=== PATIENT | female | born 1955 | race Caucasian/White ===

== ENCOUNTER 2017-04-23 16:15 | Emergency (ER) | payer BC ==
[~2017-04-23] VITALS: Ht 157.5 cm; Wt 73.5 kg
[2017-04-23] MEDS ORDERED: NEBI2.5T5 PO (16:33)
[2017-04-23] MEDS ORDERED: LOSA25TA3 PO (16:33)
[2017-04-23] MEDS ORDERED: PANT40TA2 PO (16:33)
[2017-04-23] MEDS ORDERED: ATOR20TA PO (16:33)
[2017-04-23] MEDS ORDERED: ASPI81TA31 PO (16:33)
--- NOTE | 2017-04-23 17:22 | NUR ---
PT IS IN ROOM #2B. DR FOSS EVALUATED THE PT.
[2017-04-23] MEDS ORDERED: ONDANSETRON IV *ER 4 MG/2 ML VIAL IV ONE ×3 (17:30→23:15)
[2017-04-23] MEDS ORDERED: PANTOPRAZOLE SODIUM IV 40 MG in IV DEXTROSE 5% 100 ML IV ONE (17:30)
[2017-04-23] MEDS ORDERED: PANTOPRAZOLE SODIUM 40 MG VIAL ONE ×2 (17:41→20:02)
[2017-04-23] MEDS ORDERED: ONDANSETRON 4 MG/2 ML VIAL ONE ×3 (17:42→23:26)
[2017-04-23] MEDS ORDERED: MORPHINE SULFATE 2 MG/1 ML DISP.SYRIN IV ONE (17:45)
[2017-04-23 17:53] LABS: *BILIRUBIN,URIN NEGATIVE (NEGATIVE); *BLOOD, URINE NEGATIVE (NEGATIVE); *CLARITY,URINE CLEAR (CLEAR); *COLOR,URINE YELLOW (YELLOW); *KETONES,URINE NEGATIVE (NEGATIVE); *PROTEIN,URINE 2+ (NEGATIVE); *UROBILINOGEN,URINE 0.2 E.U./dl (NORMAL); LEUKOCYTE ESTERASE ,URINE TRACE (NEGATIVE); NITRITE, URINE NEGATIVE (NEGATIVE); UGLUCOSE NEGATIVE (NEGATIVE)
[2017-04-23 18:03] LABS: CREATININE 0.9 mg/dL (0.6-1.3); POTASSIUM 4.2 mmol/L (3.5-5.1)
[2017-04-23] MEDS ORDERED: MORPHINE SULFATE 2 MG/1 ML DISP.SYRIN ONE (18:07)
[2017-04-23 18:08] LABS: BACTERIA,URINE FEW /HPF (NONE SEEN); RBC,URINE 0-3 /HPF (0-3); SQUAMOUS EPITHELIAL CELL,UR MODERATE /HPF (NONE SEEN)
[2017-04-23 18:10] LABS: BILIRUBIN,TOTAL 0.3 mg/dL (0.2-1.0); TOTAL PROTEIN, SERUM 7.2 g/dL (6.4-8.2)
[2017-04-23 18:15] LABS: BASOPHILS % (AUTO) 0.6 % (0.0-2.0); EOSINOPHILS # (AUTO) 0.2 K/uL (0.0-0.7); HEMATOCRIT 37.5 % (37-47); HEMOGLOBIN 12.1 G/DL (12.0-16.0); LYMPHOCYTES % (AUTO) 25.7 % (20.5-51.5); MEAN CORPUSCULAR HEMOGLOBIN 27.5 UUG (27.0-31.0); MEAN CORPUSCULAR HGB CONC 32 g/dL (32.0-37.0); MEAN CORPUSCULAR VOLUME 84.8 FL (81.0-99.0); MONOCYTES # (AUTO) 0.8 K/UL (0.1-1.30); MONOCYTES % (AUTO) 9.9 % (0.0-11.0); NEUTROPHILS # (AUTO) 4.7 K/UL (1.8-8.9); NEUTROPHILS % (AUTO) 61.8 % (38.5-71.5); PLATELET COUNT (AUTO) 284 K/UL (150-450); RED BLOOD CELL COUNT(AUTO) 4.42 MIL/UL (4.2-5.4); WHITE BLOOD COUNT (AUTO) 7.7 K/UL (4.0-11.2)
--- NOTE | 2017-04-23 19:22 | NUR ---
REPORT GIVEN TO THE HEEL SEAT TRIMMER RN.
--- NOTE | 2017-04-23 19:25 | NUR ---
REPORT RECEIVED FROM DAYSMTFT NURSE, PT FOUND RESTING IN BED WITH DAUGHTERS AT BEDSIDE.. PT IS ALERT, ORIENTED X 3, NO RESP DISTRESS NOTED OR REPORTED UPON ASSESSMENT, WILL CONTINUE TO MONTIOR FOR SAFETY, PAIN AND COMFORT...
[2017-04-23] MEDS ORDERED: IV NORMAL SALINE 1000 ML BAG IV ONE (19:45)
[2017-04-23] MEDS ORDERED: IOHEXOL 300MG/ML 100 ML INFUS..BTL ONE (20:18)
[2017-04-23] MEDS ORDERED: IV NORMAL SALINE 250 ML IV ONE (20:18)
[2017-04-23] MEDS ORDERED: NORMAL SALINE FLUSH 10 ML DISP.SYRIN ONE (20:18)
[2017-04-23] MEDS ORDERED: MORPHINE SULFATE 4 MG/1 ML DISP.SYRIN IV ONE (23:15)
[2017-04-23] MEDS ORDERED: MORPHINE SULFATE 4 MG/1 ML DISP.SYRIN ONE (23:26)
--- NOTE | 2017-04-23 23:41 | NUR ---
IV removed and william cath on right upper chest. Catheter intact and site benign. Pressure and 4x4 gauze applied to site. No bleeding noted.
[2017-04-23 23:43] VITALS: BP 139/76
--- NOTE | 2017-04-24 00:23 | NUR ---
Patient discharged to home in stable conditon. Written and verbal after care instructions given. Patient verbalizes understanding of instructions. pt walked out of ER unassisted with belongings and family at side...
== END 2017-04-24 00:35 | disposition home or self-care (01) ==
LOC: ER 17:25 → TELE 21:14 → UNDOADMIN 21:14 → ER 04-24 00:35
DX: K62.89 Other specified diseases of anus and rectum (principal); C18.9 Malignant neoplasm of colon, unspecified; C78.5 Secondary malignant neoplasm of large intestine and rectum; C78.7 Secondary malignant neoplasm of liver and intrahepatic bile duct
CPT/HCPCS: 36415; 70030-TC; 71260; 72193; 74160; 83690; 85025; 93005; A4663; C9113; J2270; J2405; J3490; J7030; J7050; J7060; Q9967

== ENCOUNTER 2017-06-13 13:47 | Inpatient (IN) | payer SELFPAY ==
[~2017-06-13] VITALS: Ht 157.5 cm; Wt 68.0 kg
[~2017-06-13 13:47] MED LIST: ASPI81TA31 PO; ATOR20TA PO; LOSA25TA3 PO; NEBI2.5T5 PO; PANT40TA2 PO
--- NOTE | 2017-06-13 14:21 | NUR ---
PT IS IN ROOM #2B. DR DURON EVALUATED THE PT.
[2017-06-13] MEDS ORDERED: IV NORMAL SALINE 1000 ML BAG IV ONE (14:30)
[2017-06-13 15:31] LABS: BASOPHILS # (AUTO) 0.1 K/uL (0.0-8.0); BASOPHILS % (AUTO) 2.2 % (0.0-2.0); EOSINOPHILS # (AUTO) 0.1 K/uL (0.0-0.7); EOSINOPHILS % (AUTO) 2.7 % (0.0-7.0); HEMOGLOBIN 11.3 G/DL (12.0-16.0); LYMPHOCYTES # (AUTO) 1.8 K/UL (0.8-4.8); LYMPHOCYTES % (AUTO) 35.9 % (20.5-51.5); MEAN CORPUSCULAR HEMOGLOBIN 26.1 UUG (27.0-31.0); MEAN CORPUSCULAR HGB CONC 31 g/dL (32.0-37.0); MEAN CORPUSCULAR VOLUME 83.4 FL (81.0-99.0); MONOCYTES # (AUTO) 0.4 K/UL (0.1-1.30); MONOCYTES % (AUTO) 8.4 % (0.0-11.0); NEUTROPHILS # (AUTO) 2.6 K/UL (1.8-8.9); NEUTROPHILS % (AUTO) 50.8 % (38.5-71.5); PLATELET COUNT (AUTO) 201 K/UL (150-450); RED BLOOD CELL COUNT(AUTO) 4.32 MIL/UL (4.2-5.4)
[2017-06-13 15:43] LABS: BILIRUBIN,DIRECT 0.1 mg/dL (0.0-0.2); BILIRUBIN,TOTAL 0.3 mg/dL (0.2-1.0); CREATININE 0.8 mg/dL (0.6-1.3); POTASSIUM 3.6 mmol/L (3.5-5.1); TOTAL PROTEIN, SERUM 6.3 g/dL (6.4-8.2)
[2017-06-13] MEDS ORDERED: ONDANSETRON IV *ER 4 MG/2 ML VIAL IV ONE (16:15)
[2017-06-13] MEDS ORDERED: ONDANSETRON 4 MG/2 ML VIAL ONE (16:23)
--- NOTE | 2017-06-13 16:40 | NUR ---
PT WAS TRANSFERED TO ROOM #220. REPORT WAS GIVEN TO SUPERVISOR LEAD BURNING.
[2017-06-13 17:07] VITALS: BP 129/82
--- NOTE | 2017-06-13 17:10 | NUR ---
RECEIVED PATIENT FOR ADMISSION 61 YEARS OLD FEMALE FROM ED WITH DX OF BOWEL OBSTRUCTION AND PULMONARY MASS PLACED INTO BED FIXED AND MADE COMFORTABLE PATIENT IS ALERT AND ORIENTED SPEAKS MOSTLY CITIZEN OF [place] WITH [place] BUT HER DAUGHTER IS AT THE BEDSIDE ASSISTING HER NEEDED.DR ASHLEY PARKS NOTIFIED THAT THE PATIENT IS HERE AND HE STATED WILL SEE PATIENT.MARIA ELENA CATH RIGHT UPPER CHEST INTACT WITH RICHARDS NEEDLE NOT IN DISTRESS AT THIS TIME.
[2017-06-13] MEDS ORDERED: ACETAMINOPHEN 325 MG TABLET PO PRN (17:15)
[2017-06-13] MEDS: CARVEDILOL 3.125 MG TABLET PO SCH (18:00)
[2017-06-13] MEDS: IV NS 1000 ML 1,000 ML IV PRN (18:18)
--- NOTE | 2017-06-13 18:40 | NUR ---
CALL RECEIVED FROM [facility] STATED THAT PATIENT HAS AN ORDER FOR SMALL BOWEL FOLLOW THROUGH AND STATED THAT IT WILL BE DONE TOMORROW PATIENT IS NPO EXCEPT MEDICATIONS.
[2017-06-13 19:51] VITALS: BP 106/47
[2017-06-13] MEDS: Z GUARD REMEDY PASTE 57 GM TUBE TOP PRN (21:07)
[2017-06-13] MEDS: ATORVASTATIN 20 MG TABLET PO SCH (21:07)
[2017-06-13] MEDS: FAMOTIDINE. 20 MG/2 ML VIAL IV SCH (21:07)
[2017-06-13] MEDS: ONDANSETRON 4 MG/2 ML VIAL IV PRN (21:26)
[2017-06-14] VITALS (7 sets, daily range): BP systolic 103–155; BP diastolic 63–75
--- NOTE | 2017-06-14 01:30 | NUR ---
Patient c/o pain in abdominal wall, lower back & BLE. Had 4x episodes of foul odor diarrhea. Paged [facility] windows consultant provider, spoke to Washington Jensen NP. Received orders & carried out.
[2017-06-14] MEDS: Z GUARD REMEDY PASTE 57 GM TUBE TOP PRN (05:07)
[2017-06-14 06:58] LABS: BILIRUBIN,TOTAL 0.2 mg/dL (0.2-1.0); CREATININE 0.8 mg/dL (0.6-1.3); MAGNESIUM 1.8 mg/dL (1.8-2.4); PHOSPHOROUS 3.1 mg/dL (2.5-4.9); POTASSIUM 3.6 mmol/L (3.5-5.1); TOTAL PROTEIN, SERUM 5.8 g/dL (6.4-8.2)
[2017-06-14 07:05] LABS: THYROID STIMULATING HORMONE 3.773 mIU/mL (0.358-3.740)
[2017-06-14 07:10] LABS: BASOPHILS # (AUTO) 0.1 K/uL (0.0-8.0); EOSINOPHILS # (AUTO) 0.2 K/uL (0.0-0.7); EOSINOPHILS % (AUTO) 4.4 % (0.0-7.0); HEMATOCRIT 33.3 % (37-47); HEMOGLOBIN 10.7 G/DL (12.0-16.0); LYMPHOCYTES # (AUTO) 1.4 K/UL (0.8-4.8); LYMPHOCYTES % (AUTO) 40.4 % (20.5-51.5); MEAN CORPUSCULAR HGB CONC 32 g/dL (32.0-37.0); MEAN CORPUSCULAR VOLUME 83.9 FL (81.0-99.0); MONOCYTES # (AUTO) 0.3 K/UL (0.1-1.30); MONOCYTES % (AUTO) 9.7 % (0.0-11.0); NEUTROPHILS # (AUTO) 1.4 K/UL (1.8-8.9); NEUTROPHILS % (AUTO) 43.5 % (38.5-71.5); PLATELET COUNT (AUTO) 182 K/UL (150-450); RED BLOOD CELL COUNT(AUTO) 3.97 MIL/UL (4.2-5.4)
[2017-06-14 07:12] LABS: WHITE BLOOD COUNT (AUTO) 3.4 K/UL (4.0-11.2)
--- NOTE | 2017-06-14 07:30 | NUR ---
Asleep & diarrhea stopped after 5 episodes of liquid stool. No acute resp. distress
--- NOTE | 2017-06-14 07:49 | NUR ---
RECEIVED IN BED AWAKE ALERT AND ORIENTED.DENIES PAIN OR DISCOMFORTS AT THIS TIME.REMAIN ON IVF ORDERED VIA THE MARIA ELENA CATH WITH NO S/S OF INFILTERATION ON SITE.REMAIN NPO EXCEPT MEDS ORDERED PATIENT IS FOR SMALL BOWEL FOLLOW THROUGH THIS MORNING WILL WAIT TO GIVE HER THE ORAL MEDICATIONS.TELEMETRY WITH NO ECTOPY AT THIS TIME.
[2017-06-14] MEDS ORDERED: DIATR MEGLU/DIATRIZOATE SODIUM 120 ML BOTTLE ONE (07:55)
[2017-06-14] MEDS ORDERED: BARIUM SULFATE 340 GM ONE (07:56)
[2017-06-14] MEDS: CARVEDILOL 3.125 MG TABLET PO SCH ×2 (08:00→17:08)
[2017-06-14] MEDS: LOSARTAN POTASSIUM 25 MG TABLET PO SCH ×2 (08:56→11:33)
[2017-06-14] MEDS: ASPIRIN 81 MG TAB.CHEW PO SCH (08:56)
[2017-06-14] MEDS: FAMOTIDINE. 20 MG/2 ML VIAL IV SCH ×2 (08:57→21:37)
--- NOTE | 2017-06-14 08:57 | NUR ---
PATIENT IS CURRENTLY HAVING THE SMALL BOWEL FOLLOW THROUGH AND REMAINS NPO FOR THIS PROCEDURE AND THE TECH STATED WILL BE ANOTHER 2 HOURS FOR COMPLETION OF THE TEST.
[2017-06-14] MEDS ORDERED: PANTOPRAZOLE SODIUM 40 MG TABLET.DR PO SCH (09:00)
[2017-06-14] MEDS ORDERED: PANTOPRAZOLE SODIUM 40 MG VIAL IV SCH (09:00)
[2017-06-14] MEDS: ONDANSETRON 4 MG/2 ML VIAL IV PRN ×2 (09:10→17:06)
[2017-06-14] MEDS: IV NS 1000 ML 1,000 ML IV PRN (09:11)
[2017-06-14] MEDS: HYDROCODONE/APAP 5-325MG TABLET PO PRN ×2 (10:48→17:06)
--- NOTE | 2017-06-14 11:33 | NUR ---
BLOOD PRESSURE AT THIS TIME IS 155/74 ADMINISTERED COZAAR UNSCHEDULED IT WAS HELD THIS AM AND WILL OBSERVE.
--- NOTE | 2017-06-14 16:52 | NUR ---
CALL RECEIVED FRO DR ASHLEY PARKS THAT THE GI DOCTOR WILL SEE THE PATIENT FOR CONSULT AND STATED TO START THE PATIENT ON FULL LIQUIDS DIET KITCHEN NOTIFIED.
--- NOTE | 2017-06-14 18:00 | NUR ---
DR PERLA KIMBROUGH HERE AND SEEN PATIENT WITH NEW ORDERS PATIENT IS SCHEDULED TO HAVE EGD/COLONOSCOPY IN AM PATIENT EDUCATED AND CONSCENT OBTAINED.WILL START THE BOWEL PREP SOON POSSIBLE.
[2017-06-14] MEDS: MAGNESIUM CITRATE 296 ML BOTTLE PO SCH ×3 (19:02→23:00)
[2017-06-14] MEDS: ATORVASTATIN 20 MG TABLET PO SCH (21:37)
[2017-06-15 04:00] VITALS: BP 151/63
[2017-06-15] MEDS: Z GUARD REMEDY PASTE 57 GM TUBE TOP PRN (04:02)
[2017-06-15] MEDS: IV NS 1000 ML 1,000 ML IV PRN ×2 (04:03→11:56)
--- NOTE | 2017-06-15 04:33 | NUR ---
SHIFT SUMMARY: RECEIVED PT AAO4, PERRSADI, RCW PORTACATH ACCESSED 06/13. FLUSHES WITHOUT DIFFICULTY. NS @ 75ML/HR. DRESSING C/D/I. RESPIRATIONS REGULAR AND UNLABORED, NO S/S RESP. DISTRESS. PT DENIES COUGH. VOIDING FREQUENTLY. DENIES DIFFICULTY. DENIES HEMATURIA. BOWEL SOUNDS ACTIVE [id number], PT C/O PAIN SECONDARY TO DIARRHEA. BOWEL PREP EDUCATION PROVIDED. NORCO GIVEN FOR PAIN. PT WAS ON FLD. BUT HAS BEEN NPO SINCE MIDNIGHT FOR EGD AND COLONOSCOPY THIS AM. CONSENT SIGNED AND IN CHART. PREOP CHECK LIST INITIATED. BOWEL PREP COMPLETED AT 2300 ORDERED. PT C/O INSOMNIA RELATED TO CONSTANT DIARRHEA. COMFORT MEASURES PROVIDED. PT RESTING AT THIS TIME. CALL LIGHT WITH IN REACH. BED IN LOW POSITION. WILL CONTINUE WITH PLAN OF CARE.
[2017-06-15 06:47] LABS: *BILIRUBIN,URIN NEGATIVE (NEGATIVE); *BLOOD, URINE 2+ (NEGATIVE); *CLARITY,URINE CLOUDY (CLEAR); *COLOR,URINE YELLOW (YELLOW); *KETONES,URINE NEGATIVE (NEGATIVE); *PROTEIN,URINE NEGATIVE (NEGATIVE); *UROBILINOGEN,URINE 0.2 E.U./dl (NORMAL); LEUKOCYTE ESTERASE ,URINE 2+ (NEGATIVE); NITRITE, URINE POSITIVE (NEGATIVE); UGLUCOSE NEGATIVE (NEGATIVE)
--- NOTE | 2017-06-15 07:30 | NUR ---
PATIENT PICKED UP BY BED TO GI LAB ORDERED FOR EGD/COLONOSCOPY IN SATISFACTORY CONDITION.
[2017-06-15] MEDS: CARVEDILOL 3.125 MG TABLET PO SCH ×2 (08:00→17:32)
[2017-06-15 08:09] LABS: BACTERIA,URINE MANY /HPF (NONE SEEN); SQUAMOUS EPITHELIAL CELL,UR FEW /HPF (NONE SEEN); STARCH,URINE FEW /LPF (NONE SEEN); WBC,URINE 0-3 /HPF (0-3)
[2017-06-15] MEDS: FAMOTIDINE. 20 MG/2 ML VIAL IV SCH ×2 (09:00→21:52)
[2017-06-15] MEDS: ASPIRIN 81 MG TAB.CHEW PO SCH (09:00)
[2017-06-15] MEDS: LOSARTAN POTASSIUM 25 MG TABLET PO SCH (09:00)
[2017-06-15] MEDS: CLOTRIMAZOLE/BETAMET DIPROP CREAM 15 GM TUBE TP SCH ×2 (10:11→21:52)
[2017-06-15] MEDS ORDERED: hydrALAZINE HCL 20 MG/1 ML VIAL ONE ×2 (10:22→10:59)
[2017-06-15] MEDS ORDERED: LIDOCAINE 2% 30 ML JELLY MM PRN (10:45)
[2017-06-15] MEDS ORDERED: ONDANSETRON 4 MG/2 ML VIAL ONE (11:04)
--- NOTE | 2017-06-15 11:20 | NUR ---
PATIENT RETURNED BY BED S/P EGD/COLONOSCOPY AWAKE ALERT AND ORIENTED STATED THAT SHE IS COMFORTABLE AT THIS TIME.RECONNECTED TO NS ORDERED.APPLE JUICE AND JELLO GIVEN AND SOFT DIET ORDERED FOR LUNCH ORDERED.HER FAMILY IS AT HER BEDSIDE WILL CONTINUE TO OBSERVE.
[2017-06-15 11:40] VITALS: BP 148/73
--- NOTE | 2017-06-15 13:25 | NUR ---
RESTING IN BED ATE SOME OF HER SOFT DIET STATED NOT TOO HUNGRY BUT DRINKING WELL MADE COMFORTABLE AND WILL OBSERVE .
[2017-06-15] MEDS: HYDROCODONE/APAP 5-325MG TABLET PO PRN ×3 (14:23→22:46)
[2017-06-15] MEDS ORDERED: LIDOCAINE HCL 1% 20 ML VIAL MC ONE (15:02)
[2017-06-15] MEDS ORDERED: IV LACTATED RINGERS SOLUTION 1,000 ML BAG IV ONE (15:02)
[2017-06-15] MEDS ORDERED: PROPOFOL 200 MG/20 ML BOTTLE IV ONE (15:02)
[2017-06-15 15:56] VITALS: BP 125/68
--- NOTE | 2017-06-15 16:06 | NUR ---
RESTING LIDOCAINE APPLIED REQUESTED STOOL SAMPLE OBTAINED AND SENT TO THE LAB ORDERED AND WILL OBSERVE.
[2017-06-15] MEDS ORDERED: DIPHENOXYLATE HCL/ATROP SULF TABLET PO SCH (17:00)
[2017-06-15] MEDS: ONDANSETRON 4 MG/2 ML VIAL IV PRN (18:25)
--- NOTE | 2017-06-15 18:26 | NUR ---
MEDICATED FOR C/O PAIN AND NAUSEA ORDERED AND WILL CONTINUE TO OBSERVE.
[2017-06-15] MEDS: LEVOFLOXACIN 500 MG TABLET PO SCH (20:55)
[2017-06-15 20:56] VITALS: BP 154/92
[2017-06-15] MEDS: ATORVASTATIN 20 MG TABLET PO SCH (21:51)
[2017-06-15] MEDS ORDERED: HYDROMORPHONE 1 MG/1 ML DISP.SYRIN IV ONE (23:45)
[2017-06-15] MEDS ORDERED: HYDROMORPHONE 2 MG/1 ML DISP.SYRIN ONE (23:55)
[2017-06-16] MEDS: HYDROCODONE/APAP 5-325MG TABLET PO PRN ×2 (03:09→08:39)
[2017-06-16 04:00] VITALS: BP 142/67
[2017-06-16 07:21] LABS: *BILIRUBIN,URIN NEGATIVE (NEGATIVE); *BLOOD, URINE NEGATIVE (NEGATIVE); *CLARITY,URINE CLEAR (CLEAR); *COLOR,URINE YELLOW (YELLOW); *KETONES,URINE NEGATIVE (NEGATIVE); *PROTEIN,URINE NEGATIVE (NEGATIVE); *UROBILINOGEN,URINE 0.2 E.U./dl (NORMAL); LEUKOCYTE ESTERASE ,URINE NEGATIVE (NEGATIVE); NITRITE, URINE NEGATIVE (NEGATIVE); UGLUCOSE NEGATIVE (NEGATIVE)
[2017-06-16 08:07] LABS: CANCER AG, 125 16.3 U/mL (0.0-38.1); CANCER ANTIGEN 15-3 29.8 U/mL (0.0-25.0)
[2017-06-16 08:09] LABS: RBC,URINE 0-3 /HPF (0-3); WBC,URINE 0-3 /HPF (0-3)
[2017-06-16 08:10] LABS: BACTERIA,URINE FEW /HPF (NONE SEEN); MUCUS,URINE FEW /LPF (0-FEW); SQUAMOUS EPITHELIAL CELL,UR FEW /HPF (NONE SEEN)
[2017-06-16] MEDS: FAMOTIDINE. 20 MG/2 ML VIAL IV SCH ×2 (08:37→20:34)
[2017-06-16] MEDS: ASPIRIN 81 MG TAB.CHEW PO SCH (08:38)
[2017-06-16] MEDS: LOSARTAN POTASSIUM 25 MG TABLET PO SCH (08:38)
[2017-06-16] MEDS: CARVEDILOL 3.125 MG TABLET PO SCH ×2 (08:38→17:16)
[2017-06-16] MEDS: ONDANSETRON 4 MG/2 ML VIAL IV PRN ×2 (08:39→18:28)
--- NOTE | 2017-06-16 08:39 | NUR ---
PATIENT IS COMPLAINING C/O PAIN AND NAUSEA MEDICATED WITH NORCO AND ZOFRAN ORDERED MADE COMFORTABLE AND WILL OBSERVE.
[2017-06-16] MEDS: CLOTRIMAZOLE/BETAMET DIPROP CREAM 15 GM TUBE TP SCH ×2 (09:32→20:36)
[2017-06-16] MEDS: IV NS 1000 ML 1,000 ML IV PRN (11:25)
[2017-06-16 11:57] VITALS: BP 149/72
--- NOTE | 2017-06-16 12:50 | NUR ---
PATIENT INFORMED ME THAT DILAUDID THAT WAS GIVEN TO HER LAST NITE WORKED BETTER FOR HER BUT IT WAS ONLY A ONE TIME ORDER SO I CALLED DR FONTENOT AND INFORMED HIM AND HE ORDERED FOR HER TO HAVE THE DILAUDID EVERY 4 HOURS NEEDED PATIENT AND HER DAUGHTER AWARE THAT I DILAUDID AVAILABLE FOR HER WHENEVER SHE IS IN PAIN BUT THEY STATED THAT THEY WILL LET ME KNOW WHEN SHE WANTS TO HAVE IT.
[2017-06-16] MEDS ORDERED: HYDROMORPHONE 2 MG/1 ML DISP.SYRIN IV PRN (13:00)
[2017-06-16] MEDS ORDERED: HYDROMORPHONE 1 MG/1 ML DISP.SYRIN IV PRN (13:00)
[2017-06-16 15:42] VITALS: BP 143/81
[2017-06-16] MEDS ORDERED: DIPHENOXYLATE HCL/ATROP SULF TABLET PO PRN (17:00)
--- NOTE | 2017-06-16 18:00 | NUR ---
DR DUNCAN HERE TO SEE PATIENT WITH NEW ORDERS AND NOTED.
[2017-06-16 20:30] VITALS: BP 162/69
[2017-06-16] MEDS: SUCRALFATE 1 G TABLET PO SCH (20:34)
[2017-06-16] MEDS: LEVOFLOXACIN 500 MG TABLET PO SCH (20:34)
[2017-06-16] MEDS: ATORVASTATIN 20 MG TABLET PO SCH (20:34)
--- NOTE | 2017-06-16 20:50 | NUR ---
RECEIVED PATIENT AWAKE AND COMFORTABLE IN BED NO COMPLAINT OF PAIN. IV NS 75 ML/HR INFUSION VIA MARIA ELENA-CATH. BP AT 7PM IS 163/[address] ANTENNA INSTALLER VIA PHONE AND VERBALLY ORDERED 25 MG PO HYDRALAZINE PRN >[id number]. BP STILL HIGH AT 157/73 HR 57 GIVEN DOSE ORDERED. WILL CHECK PATIENT.
[2017-06-16] MEDS: hydrALAZINE HCL 25 MG TABLET PO PRN (20:56)
[2017-06-16] MEDS: ACETAMINOPHEN 325 MG TABLET PO SCH (22:15)
[2017-06-16] MEDS: IBUPROFEN 800 MG TABLET PO SCH (22:15)
[2017-06-16] MEDS: GABAPENTIN 300 MG CAPSULE PO SCH (22:15)
[2017-06-17] MEDS: ONDANSETRON 4 MG/2 ML VIAL IV PRN ×3 (00:22→17:35)
[2017-06-17] MEDS: IV NS 1000 ML 1,000 ML IV PRN ×2 (00:27→17:35)
[2017-06-17 04:00] VITALS: BP 144/76
[2017-06-17] MEDS: ACETAMINOPHEN 325 MG TABLET PO SCH ×3 (05:32→22:52)
[2017-06-17] MEDS: GABAPENTIN 300 MG CAPSULE PO SCH ×3 (05:32→22:55)
[2017-06-17] MEDS: IBUPROFEN 800 MG TABLET PO SCH ×2 (05:33→14:58)
--- NOTE | 2017-06-17 05:46 | NUR ---
PATIENT IS COMFORTABLE SLEEPING IN BED. TYLENOL DUE FOR 6AM WAS SCANNED BUT NOT GIVEN, PILL FALL OFF IN BED WITNESSED BY THE TRASH TRUCK DRIVER. NOTED TO OTHER RN ON DUTY. OTHERWISE PATIENT HAS NO PAIN OR NAUSEA NOR RESPIRATORY DISTRESS NOTED.
[2017-06-17] MEDS: SUCRALFATE 1 G TABLET PO SCH ×4 (06:32→20:29)
[2017-06-17 06:55] LABS: BASOPHILS # (AUTO) 0.1 K/uL (0.0-8.0); BASOPHILS % (AUTO) 1.4 % (0.0-2.0); EOSINOPHILS # (AUTO) 0.2 K/uL (0.0-0.7); EOSINOPHILS % (AUTO) 4.2 % (0.0-7.0); HEMOGLOBIN 10.5 G/DL (12.0-16.0); LYMPHOCYTES # (AUTO) 1.4 K/UL (0.8-4.8); LYMPHOCYTES % (AUTO) 35.2 % (20.5-51.5); MEAN CORPUSCULAR HEMOGLOBIN 26.8 UUG (27.0-31.0); MEAN CORPUSCULAR HGB CONC 32 g/dL (32.0-37.0); MEAN CORPUSCULAR VOLUME 84.1 FL (81.0-99.0); MONOCYTES # (AUTO) 0.6 K/UL (0.1-1.30); MONOCYTES % (AUTO) 15.4 % (0.0-11.0); NEUTROPHILS # (AUTO) 1.5 K/UL (1.8-8.9); NEUTROPHILS % (AUTO) 43.8 % (38.5-71.5); PLATELET COUNT (AUTO) 139 K/UL (150-450); RED BLOOD CELL COUNT(AUTO) 3.93 MIL/UL (4.2-5.4); WHITE BLOOD COUNT (AUTO) 3.8 K/UL (4.0-11.2)
[2017-06-17 07:08] LABS: CREATININE 0.8 mg/dL (0.6-1.3); MAGNESIUM 1.4 mg/dL (1.8-2.4); PHOSPHOROUS 3.1 mg/dL (2.5-4.9); POTASSIUM 3.5 mmol/L (3.5-5.1)
--- NOTE | 2017-06-17 07:15 | NUR ---
RECEIVED REPORT FROM COOK APPRENTICE PASTRY NURSE, PATIENT IN BED SLEEPING, NO EVIDENCE OF DISTRESS NOTED. BED IN LOW POSITION, SIDE RAILS UP X2.
[2017-06-17 07:48] LABS: EOSINOPHILS % (MANUAL) 5 % (0-8); LYMPHOCYTES % (MANUAL) 33 % (20-40); MONOCYTES % (MANUAL) 13 % (2-10); NEUTROPHILS % (MANUAL) 49 % (42-75)
[2017-06-17] MEDS ORDERED: POTASSIUM CHLORIDE 20 MEQ TAB.PRT.SR PO ONE ×2 (09:00→11:15)
[2017-06-17] MEDS ORDERED: MAGNESIUM SULFATE/D5W 100 ML IV SCH (09:00)
[2017-06-17] MEDS: CARVEDILOL 3.125 MG TABLET PO SCH ×2 (09:07→17:44)
[2017-06-17] MEDS: ASPIRIN 81 MG TAB.CHEW PO SCH (09:08)
[2017-06-17] MEDS: FAMOTIDINE. 20 MG/2 ML VIAL IV SCH ×2 (09:08→20:38)
[2017-06-17] MEDS: LOSARTAN POTASSIUM 25 MG TABLET PO SCH (09:08)
[2017-06-17] MEDS: CLOTRIMAZOLE/BETAMET DIPROP CREAM 15 GM TUBE TP SCH ×2 (09:09→20:43)
[2017-06-17] MEDS ORDERED: LOSARTAN POTASSIUM 25 MG TABLET PO ONE (10:47)
[2017-06-17 11:47] VITALS: BP 145/74
[2017-06-17] MEDS: MAGNESIUM SULFATE/D5W 100 ML IV SCH ×2 (12:13→12:35)
--- NOTE | 2017-06-17 13:00 | NUR ---
CDIFF SAMPLE IS NEGATIVE AND ISOLATION HAS BEEN REMOVED PER CHARGE NURSE.
[2017-06-17 15:36] VITALS: BP 149/63
--- NOTE | 2017-06-17 18:15 | NUR ---
PATIENT IS IN BED AWAKE, NO EVIDENCE OF DISTRESS NOTED, NO SHORTNESS OF BREATH. PATIENT EXPERIENCED INTERMITTENT NAUSEA AT MEAL TIMES AND REQUESTS TO HAVE ZOFRAN WHEN AVAILABLE BEFORE MEALS. FAMILY IS AT BEDSIDE.
--- NOTE | 2017-06-17 19:00 | NUR ---
RECEIVED PATIENT IN BED ALERT, ORIENTED, NO SOB NO CHEST PAIN NOTED, MARIA ELENA CATH PATENT, NO EPISODES OF N/V NOTED AT THIS TIME. CONT TO MONITOR.
[2017-06-17 20:00] VITALS: BP 143/68
[2017-06-17] MEDS: LEVOFLOXACIN 500 MG TABLET PO SCH (20:28)
[2017-06-17] MEDS: ATORVASTATIN 20 MG TABLET PO SCH (20:29)
[2017-06-18 05:00] VITALS: BP 179/75
[2017-06-18] MEDS: ACETAMINOPHEN 325 MG TABLET PO SCH ×2 (06:55→14:59)
[2017-06-18] MEDS: GABAPENTIN 300 MG CAPSULE PO SCH ×2 (06:55→14:59)
[2017-06-18] MEDS: SUCRALFATE 1 G TABLET PO SCH ×2 (06:56→12:05)
[2017-06-18 07:04] LABS: BASOPHILS % (AUTO) 1.1 % (0.0-2.0); EOSINOPHILS # (AUTO) 0.1 K/uL (0.0-0.7); EOSINOPHILS % (AUTO) 2.8 % (0.0-7.0); HEMATOCRIT 33.7 % (37-47); HEMOGLOBIN 10.7 G/DL (12.0-16.0); LYMPHOCYTES % (AUTO) 28.4 % (20.5-51.5); MEAN CORPUSCULAR HEMOGLOBIN 26.7 UUG (27.0-31.0); MEAN CORPUSCULAR HGB CONC 32 g/dL (32.0-37.0); MEAN CORPUSCULAR VOLUME 84.2 FL (81.0-99.0); MONOCYTES # (AUTO) 0.6 K/UL (0.1-1.30); MONOCYTES % (AUTO) 16.6 % (0.0-11.0); NEUTROPHILS # (AUTO) 1.8 K/UL (1.8-8.9); NEUTROPHILS % (AUTO) 51.1 % (38.5-71.5); PLATELET COUNT (AUTO) 132 K/UL (150-450); WHITE BLOOD COUNT (AUTO) 3.5 K/UL (4.0-11.2)
[2017-06-18 07:15] LABS: BILIRUBIN,TOTAL 0.2 mg/dL (0.2-1.0); CREATININE 0.8 mg/dL (0.6-1.3); MAGNESIUM 2.2 mg/dL (1.8-2.4); PHOSPHOROUS 2.8 mg/dL (2.5-4.9); POTASSIUM 3.7 mmol/L (3.5-5.1); TOTAL PROTEIN, SERUM 5.8 g/dL (6.4-8.2)
--- NOTE | 2017-06-18 07:25 | NUR ---
PATIENT SLEPT ON AND OFF, CONT ON PAIN MANAGEMENT, MARIA ELENA CATH PATENT, NO S/S OF DISTRESS. CONT TO MONITOR.
[2017-06-18] MEDS: hydrALAZINE HCL 25 MG TABLET PO PRN (07:27)
--- NOTE | 2017-06-18 07:30 | NUR ---
RECEIVED REPORT FROM ENVIRONMENTAL PROPERTY ASSESSOR NURSE. PATIENT REPORTS NOT SLEEPING WELL, AND HAVING 4 EPISODES OF DIARRHEA THROUGH THE NIGHT. BLOOD PRESSURE CHECKED AND NOTED TO BE ELEVATED AT 175/65 P65, ADMINISTERED PRN HYDRALAZINE 25MG. WILL CONTINUE TO MONITOR.
[2017-06-18] MEDS: CARVEDILOL 3.125 MG TABLET PO SCH (08:39)
[2017-06-18] MEDS: ASPIRIN 81 MG TAB.CHEW PO SCH (08:39)
[2017-06-18] MEDS: CLOTRIMAZOLE/BETAMET DIPROP CREAM 15 GM TUBE TP SCH (08:39)
[2017-06-18] MEDS: FAMOTIDINE. 20 MG/2 ML VIAL IV SCH (08:41)
[2017-06-18] MEDS ORDERED: LOSARTAN POTASSIUM 50 MG TABLET PO SCH (09:00)
[2017-06-18] MEDS ORDERED: LOSARTAN POTASSIUM 25 MG TABLET PO SCH (09:00)
[2017-06-18 09:20] LABS: EOSINOPHILS % (MANUAL) 5 % (0-8); LYMPHOCYTES % (MANUAL) 24 % (20-40); MONOCYTES % (MANUAL) 6 % (2-10); NEUTROPHILS % (MANUAL) 65 % (42-75)
[2017-06-18] MEDS ORDERED: AMLODIPINE 5 MG TABLET PO SCH (09:45)
[2017-06-18 11:42] VITALS: BP 166/74
[2017-06-18] MEDS: ONDANSETRON 4 MG/2 ML VIAL IV PRN (12:05)
[2017-06-18] MEDS ORDERED: HYDR2TAB4 PO (15:39)
[2017-06-18] MEDS ORDERED: GABA-534 PO (15:39)
[2017-06-18] MEDS ORDERED: SUCR1TAB PO (15:39)
[2017-06-18] MEDS ORDERED: LEVO500T2 PO (15:39)
[2017-06-18] MEDS ORDERED: LOSA50TA3 PO (15:39)
[2017-06-18] MEDS ORDERED: DOCU-141 PO (15:39)
[2017-06-18] MEDS ORDERED: ACET325T53 PO (15:39)
[2017-06-18 16:18] VITALS: BP 107/69
--- NOTE | 2017-06-18 17:00 | NUR ---
PATIENT'S RICHARDS DEVICE ON MARIA ELENA CATH REMOVED, PATIENT TOLERATED MEAL WELL, NO NAUSEA OR VOMITING, NO EPISODES OF DIARRHEA THROUGH THE DAY, NO SHORTNESS OF BREATH. PATIENT MET WITH DR FONTENOT BEFORE DISCHARGE. ALL DISCHARGE MEDICATIONS WERE REVIEWED WITH PATIENT, AND PRESCRIPTION FAXED TO PHARMACY OF CHOICE. PATIENT WAS TAKEN DOWN TO PARKING LOT VIA WHEEL CHAIR TO [employer] [facility].
== END 2017-06-18 16:55 | disposition home or self-care (01) | DRG 393 ==
LOC: ER 13:50 → TELE 16:33 → MED 06-14 11:35
PROVIDERS: ADMIT Nurse Practitioner Acute Care; ATTEND Nurse Practitioner Acute Care
PROC: 0DBP8ZX Excision of Rectum, Via Natural or Artificial Opening Endoscopic, Diagnostic (ICD-10-PCS; principal; 2017-06-15 08:25)
PROC: 0DB68ZX Excision of Stomach, Via Natural or Artificial Opening Endoscopic, Diagnostic (ICD-10-PCS; principal; 2017-06-15 08:25)
PROC: 0DB98ZX Excision of Duodenum, Via Natural or Artificial Opening Endoscopic, Diagnostic (ICD-10-PCS; principal; 2017-06-15 08:25)
PROC: 0D778ZZ Dilation of Stomach, Pylorus, Via Natural or Artificial Opening Endoscopic (ICD-10-PCS; principal; 2017-06-15 08:25)
PROC: 0DB78ZX Excision of Stomach, Pylorus, Via Natural or Artificial Opening Endoscopic, Diagnostic (ICD-10-PCS; principal; 2017-06-15 08:25)
PROC: 0D748ZZ Dilation of Esophagogastric Junction, Via Natural or Artificial Opening Endoscopic (ICD-10-PCS; principal; 2017-06-15 08:25)
DX: K62.6 Ulcer of anus and rectum (principal); D61.810 Antineoplastic chemotherapy induced pancytopenia; E43 Unspecified severe protein-calorie malnutrition; C78.00 Secondary malignant neoplasm of unspecified lung; C79.31 Secondary malignant neoplasm of brain; K44.0 Diaphragmatic hernia with obstruction, without gangrene; N39.0 Urinary tract infection, site not specified; J21.9 Acute bronchiolitis, unspecified; K21.0 Gastro-esophageal reflux disease with esophagitis; K22.2 Esophageal obstruction; Z85.038 Personal history of other malignant neoplasm of large intestine; K29.80 Duodenitis without bleeding; B96.20 Unspecified Escherichia coli [E. coli] as the cause of diseases classified elsewhere; E03.9 Hypothyroidism, unspecified; Z95.5 Presence of coronary angioplasty implant and graft; F17.210 Nicotine dependence, cigarettes, uncomplicated; Z68.27 Body mass index [BMI] 27.0-27.9, adult; Z16.11 Resistance to penicillins; Z16.29 Resistance to other single specified antibiotic; L30.9 Dermatitis, unspecified; K52.9 Noninfective gastroenteritis and colitis, unspecified; I25.10 Atherosclerotic heart disease of native coronary artery without angina pectoris; I65.29 Occlusion and stenosis of unspecified carotid artery; E78.5 Hyperlipidemia, unspecified; I10 Essential (primary) hypertension; R13.10 Dysphagia, unspecified
CPT/HCPCS: 36415; 43235; 70030-TC; 71010; 74250; 82378; 83550; 83690; 83735; 84100; 84443; 85025; 85730; 86300; 86301; 87077; 87086; 93005; A4217; A4663; J0360; J1170; J2405; J3475; J3490; J7030; J7120; Q9963; Q9967